=== PATIENT | female | born 1945 | race Caucasian/White ===

== ENCOUNTER 2018-11-13 12:32 | Emergency (ER) | payer MEDICARE, OTHER ==
--- NOTE | 2018-11-13 13:14 | CR ---
INDICATION: Chest pain. TECHNIQUE: Upright portable AP image of the chest. COMPARISON: None. FINDINGS: Relatively lordotic projection with mild rotation. Lungs clear. No pleural effusion or pneumothorax. Heart size and pulmonary vasculature within normal limits. No obvious rib fracture or other significant osseous abnormality. IMPRESSION: Negative chest. Dictated by Coy Murillo MD @ Nov 13 2018 1:10PM Signed by Dr. Coy Murillo @ Nov 13 2018 1:12PM
--- NOTE | 2018-11-13 13:39 | CT ---
INDICATION: Head pressure. Lightheaded. TECHNIQUE: CT head without contrast. COMPARISON: None. FINDINGS: CSF spaces: Within normal limits for age. Brain parenchyma and extra-axial spaces: The hartman-white differentiation is normal. No sign of mass, hemorrhage, or midline shift. No extra-axial fluid collection. Skull base and calvarium: The visualized paranasal sinuses and mastoid air cells demonstrate no acute or significant findings. The visualized orbits are grossly unremarkable. No skull fractures. IMPRESSION: Unremarkable noncontrast head CT. Please note that all CT scans at this facility use dose modulation, iterative reconstruction, and/or weight-based dosing when appropriate to reduce radiation dose to as low as reasonably achievable. Dictated by Josias Weiss MD @ Nov 13 2018 1:34PM Signed by Dr. Josias Weiss @ Nov 13 2018 1:38PM
[2018-11-13] MEDS: Metoprolol Tartrate 5 MG/5 ML SDV IVPUSH SCH ×2 (14:11→14:12)
[2018-11-13] MEDS ORDERED: Ketorolac 30 MG/ML SDV IVPUSH ONE (14:14)
[2018-11-13] MEDS ORDERED: Sodium Chloride 0.9% 500 ML IV SCH (14:15)
--- NOTE | 2018-11-13 14:19 | EDM.PDOC ---
ED HPI GENERAL MEDICAL PROBLEM - General Chief Complaint: Headache Time Seen by Provider: 11/13/18 12:34 Source of Information: Reports: Patient - History of Present Illness INITIAL COMMENTS - FREE TEXT/NARRATIVE: HISTORY AND PHYSICAL: History of present illness: Patient complains of pressure sensation in the head no actual pain 2-3 out of 10 pressure sensation, her blood pressure is quite elevated which concerns her 180s over 50s was going to provide Lopressor however her blood pressure came down into the 150s over 60s without any treatment and pressure sensation resolved she is alert interactive in no distress up in the exam room talking visiting with her granddaughter Denies fever nausea vomiting diarrhea constipation chest pain shortness breath headache dizziness palpitation no bowel or urine symptoms Review of systems: As per history of present illness and below otherwise all systems reviewed and negative. Past medical history: As per history of present illness and as reviewed below otherwise noncontributory. Surgical history: As per history of present illness and as reviewed below otherwise noncontributory. Social history: No reported history of drug or alcohol abuse. Family history: As per history of present illness and as reviewed below otherwise noncontributory. Physical exam: HEENT: Atraumatic, normocephalic, pupils reactive, negative for conjunctival pallor or scleral icterus, mucous membranes moist, throat clear, neck supple, nontender, trachea midline. Lungs: Clear to auscultation, breath sounds equal bilaterally, chest nontender. Heart: S1S2, regular, negative for clicks, rubs, or JVD. Abdomen: Soft, nondistended, nontender. Negative for masses or hepatosplenomegaly. Negative for costovertebral tenderness. Pelvis: Stable nontender. Genitourinary: Deferred. Rectal: Deferred. Extremities: Atraumatic, negative for cords or calf pain. Neurovascular unremarkable. Neuro: Awake, alert, oriented. Cranial nerves II through XII unremarkable. Cerebellum unremarkable. Motor and sensory unremarkable throughout. Exam nonfocal. Diagnostics: [CBC CMP UA troponin EKG Chest [address] no contrast Therapeutics: [ patient refuses normal saline Toradol Pressure was ordered but not provided ] Impression: [ rectal screening exam Hypertension ] Definitive disposition and diagnosis as appropriate pending reevaluation and review of above. head Pain Score (Numeric/FACES): 4 - Related Data Allergies Allergy/AdvReac Type Severity Reaction Status Date / Time codeine Allergy Rash Verified 11/13/18 12:39 Home Meds: Home Meds Irbesartan 300 mg PO DAILY 11/13/18 [History] Metoprolol Tartrate 0.5 tab PO BID 11/13/18 [History] amLODIPine [Norvasc] 5 mg PO DAILY 11/13/18 [History] Past Medical History Cardiovascular History: Reports: Hypertension Neurological History: Reports: TIA - Past Surgical History GI Surgical History: Reports: Appendectomy, Cholecystectomy Social & Family History - Family History Oncologic: Reports: Lung - Tobacco Use Smoking Status *Q: Never Smoker - Recreational Drug Use Recreational Drug Use: No ED ROS GENERAL - Review of Systems Review Of Systems: See Below ED EXAM, GENERAL - Physical Exam Exam: See Below Course - Vital Signs Last Recorded V/S: Last Vital Signs Temp 97.6 F 11/13/18 12:35 Pulse 60 11/13/18 12:35 Resp 18 11/13/18 12:35 BP 187/54 H 11/13/18 12:35 Pulse Ox 95 11/13/18 12:35 - Orders/Labs/Meds Orders: Active Orders 24 hr Category Date Time Status EKG 12 Lead [EKG Documentation Completion] [RC] STAT Care 11/13/18 12:35 Active TROPONIN I [CHEM] Stat Lab 11/13/18 12:50 Received Sodium Chloride 0.9% [Normal Saline] 500 ml Med 11/13/18 14:15 Active IV STAT Medication Orders Sodium Chloride (Normal Saline) 500 mls @ 999 mls/hr IV STAT ROBERTA Labs: Laboratory Tests 11/13/18 11/13/18 11/13/18 Range/Units 12:50 12:50 12:50 WBC 6.64 (4.0-11.0) K/uL RBC 4.76 (4.30-5.90) M/uL Hgb 13.9 (12.0-16.0) g/dL Hct 42.0 (36.0-46.0) % MCV 88.2 (80.0-98.0) fL MCH 29.2 (27.0-32.0) pg MCHC 33.1 (31.0-37.0) g/dL RDW Std Deviation 48.3 (28.0-62.0) fl RDW Coeff of Lisa 15 (11.0-15.0) % Plt Count 182 (150-400) K/uL MPV 11.70 (7.40-12.00) fL Neut % (Auto) 59.9 (48.0-80.0) % Lymph % (Auto) 30.9 (16.0-40.0) % [facility] % (Auto) 7.7 (0.0-15.0) % Eos % (Auto) 1.2 (0.0-7.0) % Baso % (Auto) 0.3 (0.0-1.5) % Neut # (Auto) 4.0 (1.4-5.7) K/uL Lymph # (Auto) 2.1 (0.6-2.4) K/uL [facility] # (Auto) 0.5 (0.0-0.8) K/uL Eos # (Auto) 0.1 (0.0-0.7) K/uL Baso # (Auto) 0.0 (0.0-0.1) K/uL Nucleated RBC % 0.0 /100WBC Nucleated RBCs # 0 K/uL INR 0.99 Sodium 138 (136-145) mmol/L Potassium 4.3 (3.5-5.1) mmol/L Chloride 104 (98-107) mmol/L Carbon Dioxide 22.8 (21.0-32.0) mmol/L BUN 35 H (7.0-18.0) mg/dL Creatinine 1.4 H (0.6-1.0) mg/dL Est Cr Clr Drug Dosing 29.98 mL/min Estimated GFR (MDRD) 36.7 ml/min Glucose 140 H (74-106) mg/dL Calcium 9.5 (8.5-10.1) mg/dL Total Bilirubin 0.5 (0.2-1.0) mg/dL AST 18 (15-37) IU/L ALT 22 (14-63) IU/L Alkaline Phosphatase 43 L (46-116) U/L Total Protein 7.8 (6.4-8.2) g/dL Albumin 3.6 (3.4-5.0) g/dL Globulin 4.2 H (2.6-4.0) g/dL Albumin/Globulin Ratio 0.9 (0.9-1.6) Urine Color Urine Appearance Urine pH (5.0-8.0) Ur Specific [place] (1.001-1.035) Urine Protein (NEGATIVE) mg/dL Urine Glucose (UA) (NEGATIVE) mg/dL Urine Ketones (NEGATIVE) mg/dL Urine Occult Blood (NEGATIVE) Urine Nitrite (NEGATIVE) Urine Bilirubin (NEGATIVE) Urine Urobilinogen (<2.0) EU/dL Ur Leukocyte Esterase (NEGATIVE) 11/13/18 Range/Units 13:44 WBC (4.0-11.0) K/uL RBC (4.30-5.90) M/uL Hgb (12.0-16.0) g/dL Hct (36.0-46.0) % MCV (80.0-98.0) fL MCH (27.0-32.0) pg MCHC (31.0-37.0) g/dL RDW Std Deviation (28.0-62.0) fl RDW Coeff of Lisa (11.0-15.0) % Plt Count (150-400) K/uL MPV (7.40-12.00) fL Neut % (Auto) (48.0-80.0) % Lymph % (Auto) (16.0-40.0) % [facility] % (Auto) (0.0-15.0) % Eos % (Auto) (0.0-7.0) % Baso % (Auto) (0.0-1.5) % Neut # (Auto) (1.4-5.7) K/uL Lymph # (Auto) (0.6-2.4) K/uL [facility] # (Auto) (0.0-0.8) K/uL Eos # (Auto) (0.0-0.7) K/uL Baso # (Auto) (0.0-0.1) K/uL Nucleated RBC % /100WBC Nucleated RBCs # K/uL INR Sodium (136-145) mmol/L Potassium (3.5-5.1) mmol/L Chloride (98-107) mmol/L Carbon Dioxide (21.0-32.0) mmol/L BUN (7.0-18.0) mg/dL Creatinine (0.6-1.0) mg/dL Est Cr Clr Drug Dosing mL/min Estimated GFR (MDRD) ml/min Glucose (74-106) mg/dL Calcium (8.5-10.1) mg/dL Total Bilirubin (0.2-1.0) mg/dL AST (15-37) IU/L ALT (14-63) IU/L Alkaline Phosphatase (46-116) U/L Total Protein (6.4-8.2) g/dL Albumin (3.4-5.0) g/dL Globulin (2.6-4.0) g/dL Albumin/Globulin Ratio (0.9-1.6) Urine Color YELLOW Urine Appearance CLEAR Urine pH 5.5 (5.0-8.0) Ur Specific [place] 1.025 (1.001-1.035) Urine Protein NEGATIVE (NEGATIVE) mg/dL Urine Glucose (UA) NEGATIVE (NEGATIVE) mg/dL Urine Ketones NEGATIVE (NEGATIVE) mg/dL Urine Occult Blood NEGATIVE (NEGATIVE) Urine Nitrite NEGATIVE (NEGATIVE) Urine Bilirubin NEGATIVE (NEGATIVE) Urine Urobilinogen 0.2 (<2.0) EU/dL Ur Leukocyte Esterase NEGATIVE (NEGATIVE) Meds: Medications Generic Name Dose Route Start Last Admin Trade Name Freq PRN Reason Stop Dose Admin Sodium Chloride 500 mls @ 999 mls/hr 11/13/18 14:15 Normal Saline IV STAT ROBERTA Discontinued Medications Generic Name Dose Route Start Last Admin Trade Name Freq PRN Reason Stop Dose Admin Ketorolac Tromethamine 30 mg 11/13/18 14:14 Toradol IVPUSH 11/13/18 14:15 ONETIME ONE Metoprolol Tartrate 5 mg 11/13/18 12:45 11/13/18 14:12 Lopressor IVPUSH 11/13/18 12:56 Not Given Q5M [facility] Departure - Departure Time of Disposition: 14:18 Disposition: Home, Self-Care 01 Condition: Good Clinical Impression: Hypertension - Discharge Information Referrals: PCP,None [Primary Care Provider] - Additional Instructions: The following information is given to patients seen in the emergency department who are being discharged to home. This information is to outline your options for follow-up care. We provide all patients seen in our emergency department with a follow-up referral. The need for follow-up, as well as the timing and circumstances, are variable depending upon the specifics of your emergency department visit. If you don't have a primary care physician on staff, we will provide you with a referral. We always advise you to contact your personal physician following an emergency department visit to inform them of the circumstance of the visit and for follow-up with them and/or the need for any referrals to a consulting specialist. The emergency department will also refer you to a specialist when appropriate. This referral assures that you have the opportunity for follow-up care with a specialist. All of these measure are taken in an effort to provide you with optimal care, which includes your follow-up. Under all circumstances we always encourage you to contact your private physician who remains a resource for coordinating your care. When calling for follow-up care, please make the office aware that this follow-up is from your recent emergency room visit. If for any reason you are refused follow-up, please contact the [facility] emergency department at and asked to speak to the emergency department charge nurse. - My Orders Last 24 Hours: My Active Orders 11/13/18 12:35 EKG 12 Lead [EKG Documentation Completion] [RC] STAT 11/13/18 12:50 TROPONIN I [CHEM] Stat 11/13/18 14:15 Sodium Chloride 0.9% [Normal Saline] 500 ml IV STAT - Assessment/Plan Last 24 Hours: My Active Orders 11/13/18 12:35 EKG 12 Lead [EKG Documentation Completion] [RC] STAT 11/13/18 12:50 TROPONIN I [CHEM] Stat 11/13/18 14:15 Sodium Chloride 0.9% [Normal Saline] 500 ml IV STAT
== END 2018-11-13 14:30 | disposition home or self-care (01) ==
LOC: MW.ED 12:32
DX: I10 Essential (primary) hypertension (principal); Z88.5 Allergy status to narcotic agent; Z79.899 Other long term (current) drug therapy; Z86.73 Personal history of transient ischemic attack (TIA), and cerebral infarction without residual deficits
CPT/HCPCS: 36415; 70450; 70450-26; 71045; 71045-26; 80053; 81003; 84484; 85025; 85610; 93005; 99284; 99284-25

== ENCOUNTER 2019-10-09 02:49 | Emergency (ER) | payer MEDICARE, OTHER ==
[2019-10-09] MEDS ORDERED: Meclizine 25 MG Tab PO ONE (03:21)
--- NOTE | 2019-10-09 03:29 | EDM.PDOC ---
ED HPI GENERAL MEDICAL PROBLEM - General Chief Complaint: General Stated Complaint: LIGHT-HEADED Time Seen by Provider: 10/09/19 02:50 Source of Information: Reports: Patient History Limitations: Reports: No Limitations - History of Present Illness INITIAL COMMENTS - FREE TEXT/NARRATIVE: HISTORY OF PRESENT ILLNESS: Patient is a 74-year-old female who presents the ER with complaints of dizziness. She states that she woke 0130 this morning and after sudden movement of her head experienced brief episode of room spinning. States that symptoms resolved spontaneously but occurred a total of 4 times each time with a rapid movement of the head to the side when rolling over. She denies any present symptoms but feels as if she were to move her head it will happen again. Denies any chest pain or dyspnea. No fevers or chills. No blurred vision or slurred speech. No weakness numbness tingling. No recent trauma or falls. Denies any headache. No eye pain. No abdominal pain. Reports nausea with the symptoms but no vomiting. States she was around her grand children who had an ear infection and both ears have been bothering her slightly on and off throughout the month. No new medications. No ringing in her ears. No excessive aspirin use. Denies any GI bleeding. She has a history of frequent PVCs which is baseline for her. REVIEW OF SYSTEMS: Other than the symptoms associated with the present events, the following is reported with regard to recent health: General: (-) fever. HENT: (-) congestion. Respiratory: (-) cough. Cardiovascular: (-) chest pain. GI: (-) abdominal pain. : (-) urinary complaints. Musculoskeletal: (-) other aches or pains. Endocrine: (-) generalized weakness. Neurological: (-) localized weakness. Skin: (-) rash PAST MEDICAL HISTORY: reviewed as per nursing notes SOCIAL HISTORY: reviewed as per nursing notes, MEDICATIONS: Per nurse's note ALLERGIES: Per nurse's note, reviewed by me PHYSICAL EXAMINATION: GENERALIZED APPEARANCE: well developed, well nourished in no distress VITAL SIGNS: Per nurse's note, reviewed by me SKIN: Warm, dry; (-) cyanosis; (-) rash. HEAD: (-) scalp swelling, (-) tenderness. EYES: (-) conjunctival pallor, (-) scleral icterus. EOMI. PERRL. no nystagmus. visual upton intact bilaterally. ENMT: (-) stridor; mucous membranes moist. able to her finger rub bilaterally. TM intact without erythema bilaterally. no vesicles or rash. NECK: (-) tenderness, (-) stiffness, CHEST AND RESPIRATORY: (-) rales, (-) rhonchi, (-) wheezes; breath sounds equal bilaterally. HEART AND CARDIOVASCULAR: (-) irregularity; (-) murmur, (-) gallop. ABDOMEN AND GI: Soft; (-) tenderness, (-) guarding, (-) rebound, (-) palpable masses, EXTREMITIES: (-) deformity, (-) edema. NEURO AND PSYCH: Alert. Cranial nerves grossly intact; strength symmetric. gait steady. NIHSS = 0 . no facial droop. normal speech. nml finger to nose. 5/5 + Strength. sensation intact and equal bilaterally. DIAGNOSTICS: EKG: st 114. frequent pvcs . ventricular bigeminy. biatrial enlargement. no st elevation. CXR: There is a new 1 cm ill-defined nodular density in the left midlung. This may represent a focus of inflammatory infectious infiltrate. Follow-up radiograph is recommended to document resolution. As read by Dr. Mckay, radiologist Labs ordered and reviewed. EMERGENCY DEPARTMENT COURSE AND TREATMENT: Patient's condition improved during Emergency Department evaluation. Pt given Meclizine 25 mg PO with resolution of symptoms, able to turn head without experiencing any vertigo. EKG obtained. old EKG 2019 reviewed and demonstrated trigeminy. Labs ordered. Hypomagnesemia noted and replaced. CXR noted and findings relayed to patient. She denies any recent fever, cough or dyspnea. I do not feel antibiotics indicated. To f/u with pcp in 1-2 days and have follow up CXR ordered. Based on history, physical exam, and diagnostic evaluation, the etiology of patients dizziness is unclear but may be BPPV. The physical exam was unremarkable including a normal neurologic exam. Prior to discharge the patient was observed to ambulate in the ED without difficulty. I felt that outpatient management with close followup by the patient's primary care provider in 1-2 days was appropriate. The patient's questions were answered, and discharge precautions and reasons to return to the ED were discussed. PLAN AND FOLLOW-UP: Patient received written and verbal instructions regarding this condition. Return to ED immediately with any new or worsening symptoms. Follow up to be arranged by patient with pcp in 1-2 days for further evaluation. Given discharge precautions. Patient expressed verbal understanding. - Related Data Allergies Allergy/AdvReac Type Severity Reaction Status Date / Time codeine Allergy Rash Verified 10/09/19 02:54 Home Meds: Home Meds Irbesartan 300 mg PO DAILY 11/13/18 [History] Metoprolol Tartrate 0.5 tab PO BID 11/13/18 [History] amLODIPine [Norvasc] 5 mg PO DAILY 11/13/18 [History] Meclizine [Antivert] 25 mg PO TID PRN #12 tab 10/09/19 [Rx] Past Medical History HEENT History: Reports: None Cardiovascular History: Reports: Hypertension, Other (See Below) Other Cardiovascular History: Palpitations Respiratory History: Reports: None Gastrointestinal History: Reports: None Genitourinary History: Reports: None [employer] History: Reports: None Musculoskeletal History: Reports: None Neurological History: Reports: TIA Psychiatric History: Reports: None Endocrine/Metabolic History: Reports: None Insulin Pump Model and Incoming Inspector: None Hematologic History: Reports: None Immunologic History: Reports: None Oncologic (Cancer) History: Reports: None Dermatologic History: Reports: None - Infectious Disease History Infectious Disease History: Reports: None - Past Surgical History Head Surgeries/Procedures: Reports: None GI Surgical History: Reports: Appendectomy, Cholecystectomy Female Surgical History: Reports: None Social & Family History - Family History Family Medical History: Noncontributory Oncologic: Reports: Lung - Tobacco Use Smoking Status *Q: Former Smoker Used Tobacco, but Quit: No - Caffeine Use Caffeine Use: Reports: Coffee - Recreational Drug Use Recreational Drug Use: No ED ROS GENERAL - Review of Systems Review Of Systems: See Below (see dictation) ED EXAM, GENERAL - Physical Exam Exam: See Below (see dictation) Course - Vital Signs Last Recorded V/S: Last Vital Signs Temp 96.5 F L 10/09/19 02:55 Pulse 55 L 10/09/19 02:55 Resp 18 10/09/19 03:52 BP 163/54 H 10/09/19 03:52 Pulse Ox 99 10/09/19 03:52 - Orders/Labs/Meds Orders: Active Orders 24 hr Category Date Time Status EKG Documentation Completion [RC] STAT Care 10/09/19 02:58 Active Labs: Laboratory Tests 10/09/19 10/09/19 10/09/19 Range/Units 03:15 03:15 03:15 WBC 7.51 (4.0-11.0) K/uL RBC 4.53 (4.30-5.90) M/uL Hgb 12.2 (12.0-16.0) g/dL Hct 38.2 (36.0-46.0) % MCV 84.3 (80.0-98.0) fL MCH 26.9 L (27.0-32.0) pg MCHC 31.9 (31.0-37.0) g/dL RDW Std Deviation 49.2 (28.0-62.0) fl RDW Coeff of Lisa 16 H (11.0-15.0) % Plt Count 249 (150-400) K/uL MPV 10.40 (7.40-12.00) fL Neut % (Auto) 44.9 L (48.0-80.0) % Lymph % (Auto) 45.3 H (16.0-40.0) % [place] % (Auto) 7.7 (0.0-15.0) % Eos % (Auto) 2.0 (0.0-7.0) % Baso % (Auto) 0.1 (0.0-1.5) % Neut # (Auto) 3.4 (1.4-5.7) K/uL Lymph # (Auto) 3.4 H (0.6-2.4) K/uL [place] # (Auto) 0.6 (0.0-0.8) K/uL Eos # (Auto) 0.2 (0.0-0.7) K/uL Baso # (Auto) 0.0 (0.0-0.1) K/uL Nucleated RBC % 0.0 /100WBC Nucleated RBCs # 0 K/uL Sodium 138 (136-145) mmol/L Potassium 4.0 (3.5-5.1) mmol/L Chloride 106 (98-107) mmol/L Carbon Dioxide 23.0 (21.0-32.0) mmol/L BUN 25 H (7.0-18.0) mg/dL Creatinine 1.0 (0.6-1.0) mg/dL Est Cr Clr Drug Dosing 44.80 mL/min Estimated GFR (MDRD) 53.9 ml/min Glucose 132 H (74-106) mg/dL Calcium 9.3 (8.5-10.1) mg/dL Magnesium 1.3 L (1.8-2.4) mg/dL Troponin I < 0.050 (0.000-0.056) ng/mL Meds: Medications Discontinued Medications Generic Name Dose Route Start Last Admin Trade Name Freq PRN Reason Stop Dose Admin Magnesium Oxide 400 mg 10/09/19 03:58 Magnesium Oxide PO 10/09/19 03:59 ONETIME ONE Meclizine HCl 25 mg 10/09/19 03:21 10/09/19 03:27 Antivert PO 10/09/19 03:22 25 mg ONETIME ONE Administration Departure - Departure Time of Disposition: 04:05 Disposition: Home, Self-Care 01 Condition: Good Clinical Impression: Vertigo, Hypomagnesemia, PVC's (premature ventricular contractions), Lung density on x-ray - Discharge Information *PRESCRIPTION DRUG MONITORING PROGRAM REVIEWED*: Not Applicable *COPY OF PRESCRIPTION DRUG MONITORING REPORT IN PATIENT MARIN: Not Applicable Prescriptions: Meclizine [Antivert] 25 mg PO TID PRN #12 tab PRN Reason: Dizziness Instructions: Hypomagnesemia, How to Perform the [place] Maneuver, Dizziness, [id number], Benign Positional Vertigo Referrals: PCP,None [Primary Care Provider] - 1 Day Candice Yang [Ordering Only Provider] - Forms: ED Department Discharge Additional Instructions: The following information is given to patients seen in the emergency department who are being discharged to home. This information is to outline your options for follow-up care. We provide all patients seen in our emergency department with a follow-up referral. The need for follow-up, as well as the timing and circumstances, are variable depending upon the specifics of your emergency department visit. If you don't have a primary care physician on staff, we will provide you with a referral. We always advise you to contact your personal physician following an emergency department visit to inform them of the circumstance of the visit and for follow-up with them and/or the need for any referrals to a consulting specialist. The emergency department will also refer you to a specialist when appropriate. This referral assures that you have the opportunity for follow-up care with a specialist. All of these measure are taken in an effort to provide you with optimal care, which includes your follow-up. Under all circumstances we always encourage you to contact your private physician who remains a resource for coordinating your care. When calling for follow-up care, please make the office aware that this follow-up is from your recent emergency room visit. If for any reason you are refused follow-up, please contact the [facility] Emergency Department at and asked to speak to the emergency department charge nurse. Sepsis Event Note - Evaluation Sepsis Screening Result: No Definite Risk - Focused Exam Vital Signs: Vital Signs Temp Pulse Resp BP Pulse Ox 10/09/19 03:52 18 163/54 H 99 10/09/19 02:55 96.5 F L 55 L 18 186/71 H 99 Date Exam was Performed: 10/09/19 Time Exam was Performed: 04:05 - My Orders Last 24 Hours: My Active Orders 10/09/19 02:58 EKG Documentation Completion [RC] STAT - Assessment/Plan Last 24 Hours: My Active Orders 10/09/19 02:58 EKG Documentation Completion [RC] STAT
--- NOTE | 2019-10-09 03:36 | CR ---
INDICATION: Chest Pain TECHNIQUE: Chest radiograph 1 view COMPARISON: 11/13/2018 FINDINGS: Mediastinum: The mediastinum is normal in appearance. The heart silhouette is normal in size and morphology. Lung: There is a new 1 cm ill-defined nodular density in the left midlung. Mild linear atelectasis is seen in the right lung base. No sign of pleural effusion seen. No pneumothorax is identified. Bone and Soft tissue: Moderate diffuse osteopenia is present. IMPRESSION: 1. There is a new 1 cm ill-defined nodular density in the left midlung. This may represent a focus of inflammatory infectious infiltrate. Follow-up radiograph is recommended to document resolution. Dictated by Tushar Mckay MD @ 10/09/2019 3:35:26 AM Dictated by: Tushar Mckay MD @ 10/09/2019 03:35:30 (Electronically Signed)
[2019-10-09] MEDS ORDERED: Magnesium Oxide 400 MG Tab PO ONE (03:58)
== END 2019-10-09 04:20 | disposition home or self-care (01) ==
LOC: MW.ED 02:49
DX: I49.3 Ventricular premature depolarization (principal); R42 Dizziness and giddiness; E83.42 Hypomagnesemia; R91.8 Other nonspecific abnormal finding of lung field; I10 Essential (primary) hypertension; Z86.73 Personal history of transient ischemic attack (TIA), and cerebral infarction without residual deficits; Z88.5 Allergy status to narcotic agent; Z87.891 Personal history of nicotine dependence; Z79.899 Other long term (current) drug therapy
CPT/HCPCS: 36415; 71045; 80048; 83735; 84484; 85025; 93005; 99284; A9270